=== PATIENT | male | born 1935 | race Caucasian/White ===

== ENCOUNTER 2020-11-26 03:42 | Inpatient (IN) | payer OTHER ==
[~2020-11-26] VITALS: Ht 177.8 cm; Wt 78.9 kg
[2020-11-26] VITALS (8 sets, daily range): BP systolic 154–172; BP diastolic 62–100
--- NOTE | 2020-11-26 04:11 | NUR ---
PT WAS FISHING AND DEVELOPEDRIGHT HAND SWELLING. PT DENIED TRAUMA. PT RIGHT HAND SWOLLEN AND BLITERED, DISCOLORATION AND SWELLING CONTINUES TO MID FOREARM. PT TRANSFERED FROM [facility]. PT RECIEVED ANTIBIOTICS THERE. PT ARRIVED VIA FIX [facility]W AND [facility]. PT A/O X4 AT CONTACT WITH PT EQUAL AND UNLABORED BREATHS.
[2020-11-26 04:12] LABS: BASOPHILS % (AUTO) 1 % (0-1); EOSINOPHILS % (AUTO) 3 % (1-7); LYMPHOCYTES % (AUTO) 25 % (22-44); MEAN CORPUSCULAR HEMOGLOBIN 32.3 pg (27.5-34.5); MEAN CORPUSCULAR HGB CONC 33.9 g/dL (33.2-36.2); MEAN PLATELET VOLUME 8.6 fL (7.4-10.4); MONOCYTES % (AUTO) 12 % (2-9); NEUTROPHILS % (AUTO) 59 % (42-75); PLATELET COUNT 149 x10^3/uL (130-400); RED BLOOD COUNT 4.83 x10^6/uL (4.38-5.82); RED CELL DISTRIBUTION WIDTH 14.5 % (9.4-14.8)
[2020-11-26 04:13] LABS: MD NO
[2020-11-26 04:24] LABS: ALBUMIN 3.4 g/dL (3.4-5.0); ANION GAP 4 mmol/L (5-15); CALCIUM 8.5 mg/dL (8.5-10.1); CHLORIDE 110 mmol/L (98-107)
[2020-11-26 04:25] LABS: CREATININE 0.99 mg/dL (0.7-1.3)
[2020-11-26] MEDS ORDERED: ONDANSETRON 2MG/ML, 2ML ONE (05:55)
[2020-11-26] MEDS ORDERED: MORPHINE SULFATE 4 MG/ML, 1ML ONE (05:55)
[2020-11-26] MEDS ORDERED: ONDANSETRON 2MG/ML, 2ML IVPush ONE (06:00)
[2020-11-26] MEDS ORDERED: MORPHINE SULFATE 4 MG/ML, 1ML IVPush PRN ×2 (06:00→06:30)
--- NOTE | 2020-11-26 06:03 | NUR ---
PT RESTING IN BED, PT ARM MARKED AT 0600 AT EDGE OF REDNESS. PT MEDICATED PER SEP. PT ON MONITOR WITH PT VSS.
[2020-11-26] MEDS ORDERED: ASPI-963 PO (06:12)
[2020-11-26] MEDS ORDERED: VALS160T3 PO (06:12)
[2020-11-26] MEDS ORDERED: BACL20TA PO (06:12)
[2020-11-26] MEDS ORDERED: EZET10TA70 PO (06:12)
[2020-11-26] MEDS ORDERED: METO25TA35 PO (06:12)
[2020-11-26] MEDS ORDERED: APIX5TAB PO (06:12)
[2020-11-26] MEDS ORDERED: GABA600T7 PO (06:12)
[2020-11-26] MEDS ORDERED: ONDANSETRON 2MG/ML, 2ML IVPush PRN ×3 (06:30→09:30)
--- NOTE | 2020-11-26 06:49 | NUR ---
REPORT TO HUBERT ORTEGA
--- NOTE | 2020-11-26 06:53 | NUR ---
Bedside report from JORDAN Piña. Pt laying in bed, NADN. Connected to all monitors. States pain under control at this time.
--- NOTE | 2020-11-26 07:05 | NUR ---
MD Pops at bedside for admit.
--- NOTE | 2020-11-26 07:06 | NUR ---
Summary note: Pt states he bumped his R hand on Tuesday, but states this minor trauma did not hurt at the time. Yesterday is when he noticed it began swelling. After running his hand under hot and cold water and realizing it was not helping. Pt states pain in his hand only began at 0100. R hand is extremely swollen, 3rd, 4th and 5th finger have large blisters, 3rd finger blister is weeping. NPO since yesterday at noon. Hx of HTN, [place] with conner domingo for "my heart monica fluttering," HLD and choley.
[2020-11-26] MEDS ORDERED: VANCOMYCIN PER PHARMACY MC PRN (07:30)
[2020-11-26] MEDS ORDERED: AMPICILLIN/SULBACTAM 3 GM in SODIUM CHLORIDE 0.9% 100 ML IV SCH (07:30)
[2020-11-26] MEDS: SODIUM CHLORIDE 0.9% 1,000 ML IV SCH ×2 (08:14→20:19)
[2020-11-26] MEDS ORDERED: BACLOFEN 10 MG TABLET PO PRN (08:30)
[2020-11-26] MEDS ORDERED: VANCOMYCIN 1,800 MG in SODIUM CHLORIDE 0.9% 250 ML IV SCH ×2 (09:00→09:01)
[2020-11-26] MEDS ORDERED: PHARMACOKINETIC CONSULTATION MC ONE (09:00)
[2020-11-26] MEDS ORDERED: VANCOMYCIN 1,900 MG in SODIUM CHLORIDE 0.9% 250 ML IV SCH (09:00)
[2020-11-26] MEDS: VALSARTAN 160 MG TABLET PO SCH (09:00)
[2020-11-26] MEDS ORDERED: PHARMACOKINETIC MONITORING MC PRN (09:00)
[2020-11-26] MEDS: GABAPENTIN 400 MG CAPSULE PO SCH ×3 (09:00→20:19)
[2020-11-26] MEDS ORDERED: FENTANYL PF 100 MCG/2ML ONE (09:15)
[2020-11-26] MEDS ORDERED: CHLORHEXIDINE 15 ML UDC ONE (09:18)
[2020-11-26] MEDS ORDERED: HYDROcodone/APAP 7.5-325MG/15ML UDC PO PRN (09:30)
[2020-11-26] MEDS ORDERED: FENTANYL PF 100 MCG/2ML IV PRN (09:30)
[2020-11-26] MEDS ORDERED: MEPERIDINE/PF 25MG/0.5ML IVPush PRN (09:30)
[2020-11-26] MEDS ORDERED: PROMETHAZINE 25 MG/ML, 1ML IVPush PRN (09:30)
[2020-11-26] MEDS ORDERED: HYDROmorphone 1 MG/ML, 1ML INJ IVPush PRN (09:30)
[2020-11-26] MEDS ORDERED: CHLORHEXIDINE 15 ML UDC PO ONE (09:30)
[2020-11-26] MEDS ORDERED: OXYcodone 5 MG/5 ML ORAL.SOL UDC PO PRN (09:30)
[2020-11-26] MEDS ORDERED: LABETALOL 5MG/ML, 20ML IVPush PRN (09:30)
[2020-11-26] MEDS ORDERED: BUPIVACAINE/PF 0.5% ONE (09:31)
[2020-11-26] MEDS ORDERED: EPINEPHRINE 1 MG/ML, 1ML ONE (09:32)
[2020-11-26] MEDS: EZETIMIBE 10 MG TABLET PO SCH (09:38)
[2020-11-26] MEDS: METOPROLOL TARTRATE 25 MG TAB PO SCH ×2 (09:38→20:19)
[2020-11-26] MEDS: CEFAZOLIN PMX 2GM/50ML 50 ML IVPB SCH (17:50)
[2020-11-26] MEDS: morphine SULFATE 10 MG/ML, 1ML IVPush PRN (20:31)
[2020-11-26] MEDS ORDERED: OXYcodone/APAP 5/325MG TABLET ONE (22:14)
[2020-11-26] MEDS: OXYcodone/APAP 5/325MG TABLET PO PRN (22:18)
[2020-11-27 00:18] VITALS: BP 164/91
[2020-11-27] MEDS: morphine SULFATE 10 MG/ML, 1ML IVPush PRN ×4 (00:20→09:45)
[2020-11-27 01:16] VITALS: BP 164/88
[2020-11-27] MEDS: CEFAZOLIN PMX 2GM/50ML 50 ML IVPB SCH (02:05)
[2020-11-27 05:41] LABS: BASOPHILS % (AUTO) 1 % (0-1); EOSINOPHILS % (AUTO) 4 % (1-7); LYMPHOCYTES % (AUTO) 12 % (22-44); MEAN CORPUSCULAR HEMOGLOBIN 32.6 pg (27.5-34.5); MEAN CORPUSCULAR HGB CONC 33.2 g/dL (33.2-36.2); MONOCYTES % (AUTO) 11 % (2-9); NEUTROPHILS % (AUTO) 72 % (42-75); PLATELET COUNT 138 x10^3/uL (130-400); RED BLOOD COUNT 3.88 x10^6/uL (4.38-5.82); RED CELL DISTRIBUTION WIDTH 14.7 % (9.4-14.8)
[2020-11-27 05:52] LABS: MD NO
[2020-11-27 05:53] LABS: CHLORIDE 115 mmol/L (98-107)
[2020-11-27 06:09] LABS: ALANINE AMINOTRANSFERASE 23 U/L (12-78); ALBUMIN 2.4 g/dL (3.4-5.0); ALKALINE PHOSPHATASE 88 U/L (45-117); ANION GAP 4 mmol/L (5-15); BILIRUBIN,TOTAL 0.6 mg/dL (0.2-1.0); TOTAL PROTEIN 4.9 g/dL (6.4-8.2)
[2020-11-27 06:24] VITALS: BP 157/88
[2020-11-27] MEDS: OXYcodone/APAP 5/325MG TABLET PO PRN ×2 (06:25→14:53)
[2020-11-27 07:43] VITALS: BP 156/83
[2020-11-27] MEDS: METOPROLOL TARTRATE 25 MG TAB PO SCH ×2 (09:44→20:19)
[2020-11-27] MEDS: EZETIMIBE 10 MG TABLET PO SCH (09:44)
[2020-11-27] MEDS: VALSARTAN 160 MG TABLET PO SCH (09:44)
[2020-11-27] MEDS: GABAPENTIN 400 MG CAPSULE PO SCH ×3 (09:44→20:19)
[2020-11-27 14:02] VITALS: BP 128/81
[2020-11-27] MEDS: SODIUM CHLORIDE 0.9% 1,000 ML IV SCH (15:00)
[2020-11-27] MEDS ORDERED: FENTANYL PF 250 MCG/5ML ONE (17:07)
[2020-11-27] MEDS ORDERED: ONDANSETRON 2MG/ML, 2ML ONE (18:28)
[2020-11-27] MEDS ORDERED: CEFAZOLIN 1,000 MG ONE (18:28)
[2020-11-27] MEDS ORDERED: PROPOFOL 10 MG/ML, 20ML ONE (18:28)
[2020-11-27] MEDS ORDERED: DEXAMETHASONE 4 MG/ML, 1ML ONE (18:28)
[2020-11-27] MEDS ORDERED: OXYcodone 5 MG/5 ML ORAL.SOL UDC ONE ×2 (19:06→19:17)
[2020-11-27] MEDS ORDERED: FENTANYL PF 100 MCG/2ML ONE (19:06)
[2020-11-27] MEDS: OXYcodone 5 MG/5 ML ORAL.SOL UDC PO PRN ×2 (19:07→19:20)
[2020-11-27] MEDS: FENTANYL PF 100 MCG/2ML IV PRN ×3 (19:07→19:23)
[2020-11-27] MEDS ORDERED: ACETAMINOPHEN 325 MG TABLET PO PRN (19:30)
[2020-11-27] MEDS ORDERED: METHOCARBAMOL 1,000 MG in DEXTROSE 5% 100 ML IV PRN (19:30)
[2020-11-27] MEDS ORDERED: hydrALAzine 20 MG/ML, 1ML IV PRN (19:30)
[2020-11-27] MEDS ORDERED: ONDANSETRON 2MG/ML, 2ML IVPush PRN (19:30)
[2020-11-27] MEDS ORDERED: PROMETHAZINE 25 MG/ML, 1ML IVPush PRN (19:30)
[2020-11-27] MEDS ORDERED: HYDROmorphone 1 MG/ML, 1ML INJ IVPush PRN (19:30)
[2020-11-27] MEDS ORDERED: LABETALOL 5MG/ML, 20ML IV PRN (19:30)
[2020-11-27] MEDS ORDERED: MEPERIDINE/PF 25MG/0.5ML IVPush PRN (19:30)
[2020-11-27] MEDS ORDERED: LORazepam 2 MG/ML, 1ML IVPush PRN (19:30)
[2020-11-27 20:07] VITALS: BP 152/78
[2020-11-28 00:02] VITALS: BP 122/73
[2020-11-28] MEDS: OXYcodone/APAP 5/325MG TABLET PO PRN ×2 (02:33→11:19)
[2020-11-28] MEDS: CEFAZOLIN PMX 2GM/50ML 50 ML IVPB SCH ×2 (03:15→11:12)
[2020-11-28 04:59] LABS: BASOPHILS % (AUTO) 1 % (0-1); EOSINOPHILS % (AUTO) 5 % (1-7); LYMPHOCYTES % (AUTO) 12 % (22-44); MEAN CORPUSCULAR HEMOGLOBIN 32.3 pg (27.5-34.5); MEAN PLATELET VOLUME 8.7 fL (7.4-10.4); MONOCYTES % (AUTO) 10 % (2-9); NEUTROPHILS % (AUTO) 72 % (42-75); PLATELET COUNT 134 x10^3/uL (130-400); RED BLOOD COUNT 4.11 x10^6/uL (4.38-5.82); RED CELL DISTRIBUTION WIDTH 14.1 % (9.4-14.8)
[2020-11-28 05:00] LABS: MD NO
[2020-11-28 05:02] LABS: ANION GAP 3 mmol/L (5-15); CHLORIDE 110 mmol/L (98-107); CREATININE 0.84 mg/dL (0.7-1.3)
[2020-11-28] MEDS: morphine SULFATE 10 MG/ML, 1ML IVPush PRN ×2 (06:25→11:12)
[2020-11-28 08:17] VITALS: BP 163/84
[2020-11-28] MEDS: EZETIMIBE 10 MG TABLET PO SCH (08:23)
[2020-11-28] MEDS: GABAPENTIN 400 MG CAPSULE PO SCH ×3 (08:24→19:35)
[2020-11-28] MEDS: SODIUM CHLORIDE 0.9% 1,000 ML IV SCH (08:24)
[2020-11-28] MEDS: METOPROLOL TARTRATE 25 MG TAB PO SCH ×2 (08:24→19:35)
[2020-11-28] MEDS: VALSARTAN 160 MG TABLET PO SCH (08:24)
[2020-11-28 14:24] VITALS: BP 107/62
[2020-11-28 15:12] VITALS: BP 113/70
[2020-11-28 19:32] VITALS: BP 138/81
[2020-11-29 00:20] VITALS: BP 117/74
[2020-11-29] MEDS: OXYcodone/APAP 5/325MG TABLET PO PRN (02:00)
[2020-11-29 05:05] LABS: BASOPHILS % (AUTO) 1 % (0-1); EOSINOPHILS % (AUTO) 5 % (1-7); LYMPHOCYTES % (AUTO) 15 % (22-44); MEAN CORPUSCULAR HEMOGLOBIN 32.2 pg (27.5-34.5); MEAN CORPUSCULAR HGB CONC 33.7 g/dL (33.2-36.2); MEAN PLATELET VOLUME 8.9 fL (7.4-10.4); MONOCYTES % (AUTO) 11 % (2-9); NEUTROPHILS % (AUTO) 69 % (42-75); PLATELET COUNT 143 x10^3/uL (130-400); RED BLOOD COUNT 4.06 x10^6/uL (4.38-5.82)
[2020-11-29 05:06] LABS: MD NO
[2020-11-29 05:15] LABS: CHLORIDE 109 mmol/L (98-107)
[2020-11-29 05:17] LABS: ANION GAP 3 mmol/L (5-15); CREATININE 0.69 mg/dL (0.7-1.3)
[2020-11-29 06:40] VITALS: BP 117/71
[2020-11-29] MEDS: METOPROLOL TARTRATE 25 MG TAB PO SCH ×2 (09:28→20:13)
[2020-11-29] MEDS: VALSARTAN 160 MG TABLET PO SCH (09:29)
[2020-11-29] MEDS: GABAPENTIN 400 MG CAPSULE PO SCH ×3 (09:29→20:12)
[2020-11-29] MEDS: EZETIMIBE 10 MG TABLET PO SCH (09:30)
[2020-11-29 13:25] VITALS: BP 125/71
[2020-11-29 20:11] VITALS: BP 151/96
[2020-11-30 00:23] VITALS: BP 133/78
[2020-11-30 07:37] VITALS: BP 152/68
[2020-11-30] MEDS: VALSARTAN 160 MG TABLET PO SCH (07:57)
[2020-11-30] MEDS: METOPROLOL TARTRATE 25 MG TAB PO SCH ×2 (07:57→19:48)
[2020-11-30] MEDS: EZETIMIBE 10 MG TABLET PO SCH (07:57)
[2020-11-30] MEDS: GABAPENTIN 400 MG CAPSULE PO SCH ×3 (07:57→19:48)
[2020-11-30 13:35] VITALS: BP 128/76
[2020-11-30] MEDS ORDERED: FUROSEMIDE 40 MG/4 ML IV ONE (17:00)
[2020-11-30 18:29] VITALS: BP 123/72
[2020-12-01 00:06] VITALS: BP 109/70
[2020-12-01 06:23] VITALS: BP 118/77
[2020-12-01 09:17] LABS: ANION GAP 3 mmol/L (5-15); CALCIUM 8.5 mg/dL (8.5-10.1); CHLORIDE 105 mmol/L (98-107); CREATININE 0.86 mg/dL (0.7-1.3)
[2020-12-01] MEDS: VALSARTAN 160 MG TABLET PO SCH (09:21)
[2020-12-01] MEDS: EZETIMIBE 10 MG TABLET PO SCH (09:21)
[2020-12-01] MEDS: GABAPENTIN 400 MG CAPSULE PO SCH ×2 (09:21→16:00)
[2020-12-01] MEDS: METOPROLOL TARTRATE 25 MG TAB PO SCH (09:22)
[2020-12-01] MEDS: OXYcodone/APAP 5/325MG TABLET PO PRN (11:34)
[2020-12-01 13:50] VITALS: BP 131/62
[2020-12-01] MEDS ORDERED: OXYC1TAB14 PO (14:49)
== END 2020-12-01 18:40 | disposition home or self-care (01) | DRG 579 ==
LOC: ED 04:06 → EDIP 06:21 → 4NW 07:58 → 4WST 10:48 → 3N 11-28 15:06
PROVIDERS: ADMIT Internal Medicine; ATTEND Internal Medicine
PROC: 0J9J0ZZ Drainage of Right Hand Subcutaneous Tissue and Fascia, Open Approach (ICD-10-PCS; principal; 2020-11-26 16:50)
PROC: 0LB70ZZ Excision of Right Hand Tendon, Open Approach (ICD-10-PCS; 2020-11-27)
DX: L03.113 Cellulitis of right upper limb (principal); J96.01 Acute respiratory failure with hypoxia; I48.92 Unspecified atrial flutter; I96 Gangrene, not elsewhere classified; L02.511 Cutaneous abscess of right hand; I48.91 Unspecified atrial fibrillation; E78.00 Pure hypercholesterolemia, unspecified; E78.5 Hyperlipidemia, unspecified; Z20.822 Contact with and (suspected) exposure to COVID-19; E87.70 Fluid overload, unspecified; I10 Essential (primary) hypertension; I25.10 Atherosclerotic heart disease of native coronary artery without angina pectoris; E11.9 Type 2 diabetes mellitus without complications; S60.221A Contusion of right hand, initial encounter; S60.521A Blister (nonthermal) of right hand, initial encounter; X58.XXXA Exposure to other specified factors, initial encounter; I25.2 Old myocardial infarction; Z95.1 Presence of aortocoronary bypass graft; Z79.01 Long term (current) use of anticoagulants; Z90.49 Acquired absence of other specified parts of digestive tract; Y93.89 Activity, other specified; Y92.89 Other specified places as the place of occurrence of the external cause; Y99.8 Other external cause status; Z91.018 Allergy to other foods; Z91.011 Allergy to milk products; Z88.8 Allergy status to other drugs, medicaments and biological substances
CPT/HCPCS: 36415; 80048; 80053; 82040; 83735; 85025; 85651; 86140; 87635; 93005; 93306; 96374; 96375; G0378; J0171; J0295; J0690; J1100; J1940; J2405; J2704; J3010; J3370; J2270; J7030; J7050